=== PATIENT | female | born 1935 | race Caucasian/White ===

== ENCOUNTER 2019-09-13 08:46 | Emergency (ER) | payer MEDICARE ==
[~2019-09-13] VITALS: Ht 158.8 cm; Wt 56.8 kg
[2019-09-13 08:49] VITALS: Ht 158.8 cm; Wt 56.8 kg
[2019-09-13 09:06] LABS: BASOPHILS 0.7 % (0-2); EOSINOPHILS 2.3 % (0-7); HEMATOCRIT 38.9 % (36.0-48.0); HEMOGLOBIN 12.7 g/dL (12-16); IMMATURE GRANULOCYTES 0.2 % (0-5); LYMPHOCYTES 33.7 % (15-50); MCH 30.5 pg (26.0-34.0); MCHC 32.6 g/dL (31.0-37.0); MCV 93.3 fL (80.0-100.0); MEAN PLATELET VOLUME 9.5 fL (7.4-10.4); NEUTROPHILS 54.1 % (40-80); PLATELET COUNT 178 10x3/uL (130-400); RBC 4.17 10x6/uL (4.00-5.40); RDW 12.6 % (11.5-14.5)
[2019-09-13 09:19] LABS: APTT 27.1 SECONDS (22.8-39.4); INR 1.1 (0.85-1.17); PROTIME 14.1 SECONDS (11.6-15.0)
[2019-09-13 09:21] LABS: CALC OSMOLALITY 280 mosm/kg (275-300); CALCIUM 8.9 mg/dL (8.5-10.1); CARBON DIOXIDE 29.7 mmol/L (21.0-32.0); CHLORIDE - SERUM 105 mmol/L (98-107); CREATININE - SERUM 1.2 mg/dL (0.6-1.3); GLUCOSE 101 mg/dL (74-106); POTASSIUM - SERUM 3.7 mmol/L (3.5-5.1); SODIUM 139 mmol/L (136-145); UREA NITROGEN 21 mg/dL (7-18); eGFR NON AFRICAN AMERICAN 45 mL/min (90-120)
[2019-09-13 09:33] LABS: ALBUMIN 3.6 g/dL (3.4-5.0); ALKALINE PHOSPHATASE 74 U/L (30-120); ALT (SGPT) 19 U/L (10-68); BILIRUBIN - TOTAL 0.43 mg/dL (0.2-1.3); CKMB 1.9 U/L (0.0-3.6); CREATINE KINASE 86 UL (21-215); MAGNESIUM - SERUM 2.4 mg/dL (1.8-2.4); PROTEIN - SERUM 7.1 g/dL (6.4-8.2); TROPONIN-I < 0.017 ng/mL (0.000-0.060)
[2019-09-13] MEDS ORDERED: PROTONIX40 MG PO (10:25)
[2019-09-13] MEDS ORDERED: HYDRALAZINE HCL25 MG PO (11:05)
[2019-09-13 11:59] VITALS: BP 154/67
== END 2019-09-13 12:25 | disposition home or self-care (01) ==
LOC: D.ER 08:46
PROVIDERS: Family Medicine
DX: Z91.19 Patient's noncompliance with other medical treatment and regimen (principal); K21.9 Gastro-esophageal reflux disease without esophagitis; I10 Essential (primary) hypertension

== ENCOUNTER 2019-11-08 11:52 | Emergency (ER) | payer MEDICARE ==
[~2019-11-08] VITALS: Ht 158.8 cm; Wt 56.8 kg
[~2019-11-08 11:52] MED LIST: HYDRALAZINE HCL25 MG PO; PROTONIX40 MG PO
[2019-11-08 11:57] VITALS: BP 176/88; Ht 158.8 cm; Wt 56.8 kg
[2019-11-08 12:46] LABS: BASOPHILS 0.9 % (0-2); EOSINOPHILS 0.9 % (0-7); HEMATOCRIT 39.3 % (36.0-48.0); HEMOGLOBIN 12.9 g/dL (12-16); IMMATURE GRANULOCYTES 0.2 % (0-5); LYMPHOCYTES 32.8 % (15-50); MCH 30.3 pg (26.0-34.0); MCHC 32.8 g/dL (31.0-37.0); MCV 92.3 fL (80.0-100.0); MEAN PLATELET VOLUME 9.3 fL (7.4-10.4); MONOCYTES 7.1 % (2-11); NEUTROPHILS 58.1 % (40-80); PLATELET COUNT 180 10x3/uL (130-400); RBC 4.26 10x6/uL (4.00-5.40); RDW 12.7 % (11.5-14.5); WBC 5.8 10x3/uL (4.8-10.8)
[2019-11-08 12:58] LABS: ANION GAP 7.5 mmol/L (8-16); CREATININE - SERUM 1.3 mg/dL (0.6-1.3); POTASSIUM - SERUM 3.5 mmol/L (3.5-5.1)
[2019-11-08 13:01] LABS: ALBUMIN 3.9 g/dL (3.4-5.0); BILIRUBIN - TOTAL 0.53 mg/dL (0.2-1.3); MAGNESIUM - SERUM 2.3 mg/dL (1.8-2.4); PROTEIN - SERUM 7.3 g/dL (6.4-8.2)
[2019-11-08 13:02] LABS: UDS - AMPHET NEGATIVE QUAL (NEGATIVE); UDS - BARB NEGATIVE QUAL (NEGATIVE); UDS - BENZO NEGATIVE QUAL (NEGATIVE); UDS - COCAINE NEGATIVE QUAL (NEGATIVE); UDS - OPIATE NEGATIVE QUAL (NEGATIVE); UDS - PCP NEGATIVE QUAL (NEGATIVE); UDS - THC NEGATIVE QUAL (NEGATIVE)
[2019-11-08 13:26] LABS: BILIRUBIN NEGATIVE (NEGATIVE); KETONE NEGATIVE (NEGATIVE); NITRITE NEGATIVE (NEGATIVE); UROBILINOGEN NORMAL mg/dL (< 2)
[2019-11-08 13:28] LABS: BACTERIA FEW HPF (NONE SEEN); EPITHELIAL CELLS OCC /hpf (0-5); WHITE CELLS - URINE OCC HPF (0-4)
[2019-11-08] MEDS ORDERED: MACRODANTIN100 MG PO ×2 (14:09→19:13)
[2019-11-08] MEDS ORDERED: FLUTICASONE PRO16 GM NASAL ×2 (14:09→19:12)
== END 2019-11-08 16:53 | disposition other institution (70) ==
LOC: D.ER 11:52
PROVIDERS: Emergency Medicine
DX: N39.0 Urinary tract infection, site not specified (principal); R41.0 Disorientation, unspecified; R45.851 Suicidal ideations; I10 Essential (primary) hypertension; K21.9 Gastro-esophageal reflux disease without esophagitis

== ENCOUNTER 2019-11-08 17:19 | Inpatient (IN) | payer MEDICARE ==
[~2019-11-08 17:19] MED LIST changes: +FLUTICASONE PRO16 GM NASAL; +MACRODANTIN100 MG PO
--- NOTE | 2019-11-08 17:46 | NUR ---
PT ADMITTED TO [facility] FROM [facility] ER FOR S.I. PT REPORTED " I WANTED TO JUMP OUT THE WINDOW." PT IS FULL CODE. PT GAVE VERVAL CONSENT TO TREAT WITNESSED X 2 NURSES. CODE # 5033. PT REPORTS HER PHARMACY IS [facility] [address] VS: 172/79,101,18, 98%, 98.4. ADMIT WT 121.6.
[2019-11-08 18:18] VITALS: BP 172/79; BMI 21.9
[2019-11-08] MEDS ORDERED: FLUTICASONE PRO16 GM NASAL (19:12)
[2019-11-08] MEDS ORDERED: MACRODANTIN100 MG PO (19:13)
--- NOTE | 2019-11-08 19:37 | NUR ---
PT BELONGINGS TOOK TO ER FOR LOCK UP. WITNESS JOAO MHT PRESENT. COPY OF BELONGINGS SHEET PLACED IN PTS CHART UNDER DISCHARGE TAB. BLACK PURSE PUT IN STORAGE ROOM IN 1123 BIN.
[2019-11-08 19:56] VITALS: BP 124/77
--- NOTE | 2019-11-08 21:36 | NUR ---
RECEIVED IN HALLWAY OUTSIDE OF NURSES STATION. CALM AND COOPERATIVE WITH ADMIT ASSESSMENT. DENIES SELF HARM AT THIS TIME. ENCOURAGE TO EXPRESS NEEDS AND FEELINGS. ORIENT TO SKILLED NURSING. RESTING IN BED WITH EYES CLOSED AT THIS TIME. CONTINUE PLAN OF CARE.
[2019-11-08 22:19] LABS: BASOPHILS 0.9 % (0-2); EOSINOPHILS 2.5 % (0-7); HEMOGLOBIN 11.5 g/dL (12-16); IMMATURE GRANULOCYTES 0.2 % (0-5); LYMPHOCYTES 39.6 % (15-50); MCH 30.4 pg (26.0-34.0); MCHC 32.9 g/dL (31.0-37.0); MCV 92.6 fL (80.0-100.0); MEAN PLATELET VOLUME 9.3 fL (7.4-10.4); MONOCYTES 8.6 % (2-11); NEUTROPHILS 48.2 % (40-80); PLATELET COUNT 156 10x3/uL (130-400); RBC 3.78 10x6/uL (4.00-5.40); RDW 12.7 % (11.5-14.5); WBC 6.5 10x3/uL (4.8-10.8)
[2019-11-08 22:54] LABS: ALBUMIN 3.2 g/dL (3.4-5.0); ANION GAP 7.1 mmol/L (8-16); BILIRUBIN - TOTAL 0.32 mg/dL (0.2-1.3); CALCIUM 8.4 mg/dL (8.5-10.1); CARBON DIOXIDE 29.7 mmol/L (21.0-32.0); CHOL - HDL RATIO 2.8 ratio (2.3-4.1); CREATININE - SERUM 1.3 mg/dL (0.6-1.3); LDL-HDL RATIO 1.6 ratio (1.5-3.5); POTASSIUM - SERUM 3.8 mmol/L (3.5-5.1); PROTEIN - SERUM 6.1 g/dL (6.4-8.2); THYROID STIMULATING HORMONE 1.07 uIU/mL (0.36-3.74)
[2019-11-09 08:30] VITALS: BP 143/77
--- NOTE | 2019-11-09 10:38 | NUR ---
REC'D PT IN ROOM RESTING IN BED WITH EYES OPEN. RESPONDS TO VERBAL STIMULI. AWAKE AND ALERT X 3 AT TIMES. PT HAS POOR INSIGHT INTO HER SITUATION AT THIS TIME. REDIRECT AND REORIENT NEEDED. PT DENIES SELF HARM AT THIS TIME. PT ON CONTACT ISOLATION FOR PENDING COVID RESULTS. WILL CPOC.
[2019-11-09 11:09] VITALS: Wt 57.4 kg
[2019-11-09 20:00] VITALS: BP 133/59
--- NOTE | 2019-11-09 22:11 | NUR ---
B.) PT IS ALERT AND ORIENTED TO SELF, PLACE AND TIME. SHE IS CALM AND COOPERATIVE WITH STAFF. SHE IS ABLE TO AMBULATE ON HER OWN WITHOUT ASSIST. SHE DENIES ANY SI THIS SHIFT. I.) PROVIDED PM MEDICATIONS PRESCRIBED. REDIRECT NEEDED. R.) COMPLIANT WITH ALL MEDICATIONS. EASY TO REDIRECT. P.) WILL CONTINUE TO MONITOR.
[2019-11-10 07:15] LABS: RAPID PLASMA REAGIN Non Reactive (Non Reactive)
--- NOTE | 2019-11-10 07:44 | NUR ---
The patient is awake and alert, she is blunted in affect, she denies SI, or HI, this am, no aggression noted. She has poor insight into her situation. She enjoys socializing and she is cooperative. Provide prescribed meds. The patient is compliant with meds. Continue POC.
[2019-11-10 08:07] VITALS: BP 155/76
--- NOTE | 2019-11-10 09:31 | NUR ---
The patient is very confused, was trying to talk to her about her medication, vitamin D and she said she takes the vitamin D at home, let her know she is low and the best thing to do is get in the sun. She said "I do, I go on the patio at the [facility]." She then went onto say that the drug company wants her to take a statin and she refuses, she said "They are trying to make me and they are not answering my phone calls." She is sitting with another lady and they are conversing. She has poor insight into her situation.
--- NOTE | 2019-11-10 15:38 | HP ---
PATIENT: ZEE BECKHAM MEDICAL RECORD: [id number] ACCOUNT: [id number] LOCATION:[facility] : 34 ADMISSION DATE: 11/08/19 PCP: No PCP HISTORY AND PHYSICAL EXAMINATION IDENTIFYING DATA: The patient is 84 years old and she is admitted to the hospital on a voluntary basis. CHIEF COMPLAINT: Confusion. HISTORY OF PRESENT ILLNESS: The patient is a very interesting woman. She lives at [facility]. She has been confused and agitated and was threatening to jump out of a window. She now is minimizing saying that she really did not mean it, but she is just angry about a number of things that are not very well organized. As best I can understand that she will not take medicines because they have salt on them and she will not eat certain foods because they have salt in them and that somehow affect her white blood count. She is also insisting she has some bizarre mold or fungus inside of her head and is wanting us to do something to get rid of that. She still has very long and convoluted stories that do not make sense. 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 She says that she is depressed, but when asked about individual neurovegetative depressive symptoms, she is denying those. It is clear that she is disorganized and not making very good rational sense. PAST MEDICAL HISTORY: Significant for hypertension. PAST PSYCHIATRIC HISTORY: None by her account. FAMILY HISTORY: Significant for hypertension in her father. ALLERGIES : LISINOPRIL. SHE INSISTS THAT CAUSES HER MAGNESIUM TO BE DEPLETED. CURRENT MEDICATIONS: None. SOCIAL HISTORY: The patient tells me that she has been , but and that she has no children. 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 MENTAL STATUS EXAMINATION: The patient is awake, alert, and oriented to person and place as well as somewhat to time and situation. Her mood is flat. Her affect is constricted. Thought processes are disorganized. She has impairment of her memory, concentration, and abstraction abilities. ASSESSMENT: AXIS I: Advanced neurocognitive disorder of the Alzheimer's type. Major depressive disorder. AXIS II: Deferred. AXIS III: Hypertension. AXIS IV: Moderate. AXIS V: Global assessment of functioning is 35. PLAN: At this time, the patient is going to be treated with a combination of antipsychotic, antidepressant, and memory enhancing medications. I suspect she may not be able to return to independent living at [facility], but that HISTORY AND PHYSICAL [id number] ZEE BECKHAM determination has yet been made. TRANSINT:[id number] Voice Confirmation ID: [id number] DOCUMENT ID: [id number] SHALOM ROUSSEAU MD at 1538 CC: [id number] DICTATION DATE: 11/09/19 1603 [employer] ATTENDANT: 11/09/19 1931 ADM IN [facility] [address] [id number]
--- NOTE | 2019-11-10 19:11 | NUR ---
PT C/O OF ACID REFLUX AND THE STATINS CAUSED HER TO HAVE GERD. HER TEETH ARE ROTTING AND SHE NEEDS SOMETHING FOR THE GERD. PROTONIX 40 MG PRN. WILL CONT TO MONITOR FOR CHANGES.
[2019-11-10 20:29] VITALS: BP 136/73
--- NOTE | 2019-11-10 20:44 | NUR ---
B.) PT IS ALERT AND ORIENTED X3. SHE IS CALM AND COOPERATIVE WITH STAFF. SHE REQUESTS THAT SHE GETS A SHOWER TONITE. INFORMED HER THAT WE WOULD GET HER ONE WHEN SHE WAS ON HER WAY TO GO TO BED. SHE DENIES ANY SI THIS SHIFT. I.) PROVIDED PM MEDICATIONS PRESCRIBED. REDIRECT NEEDED. R.) COMPLIANT WITH ALL MEDICATIONS. EASY TO REDIRECT. P.) WILL CONTINUE TO MONITOR.
--- NOTE | 2019-11-10 22:00 | NUR ---
PT C/O RIGHT BUNION PAIN. IT APPEARS A LITTLE RED THIS EVENING. EDUCATED HER ON NOT WEARING THE TIGHT BOOTS FOR AT LEAST THE NEXT DAY. INFORMED HER TO WEAR THE NON SKID FOOTWEAR THAT WE PROVIDED. SHE VERBALIZED UNDERSTANDING. WILL CONTINUE TO MONITOR.
--- NOTE | 2019-11-11 07:45 | NUR ---
The patient is awake and alert, she is dressed and well put together, she is interacting with staff and peers. She is conversing with everyone, but some of her sentences are not flowing together. She ambulates, toilets, and feeds herself. She denies depression, SI, or HI. Provide prescribed meds. The patient is compliant with meds. This am she is speaking about Psalm 91. Continue POC.
[2019-11-11 09:49] VITALS: BP 190/111
--- NOTE | 2019-11-11 11:05 | NUR ---
Nutrition Follow-up: Diet: Regular PO intake: 95-100% x last 6 meals Last BM: none since admit. Wt: 121# (11/09/19) Meds reviewed, no new chem labs Recommend continue current diet. RD following.
[2019-11-11 11:35] VITALS: BP 189/70
[2019-11-11 20:27] VITALS: BP 147/66
--- NOTE | 2019-11-11 21:00 | NUR ---
B) RECEIVED SITTING IN CHAIR WATCHING TV WITH PEERS. SHE IS ALERT AND ORIENTED X 3, CALM AND COOPERATIVE WITH ASSESSMENT. SHE DENIES SI TONIGHT. I) ADMINISTERED SCHEDULED MEDICATIONS. REDIRECT NEEDED. R) MEDICATION COMPLIANT. EASY TO REDIRECT. P) CONTINUE PLAN OF CARE.
[2019-11-12 08:01] VITALS: BP 139/84
--- NOTE | 2019-11-12 10:37 | NUR ---
PT IS AWAKE AND ALERT X 3. PT IS CONFUSED REGARDING SITUATION AT THIS TIME. CALM AND COOPERATIVE WITH ASSESSMENT. PRESCRIBED MEDS PROVIDED ORDERED. MED COMPLIANT. PT DENIES DEPRESSION, SI, OR HI. WILL CPOC.
[2019-11-12 20:41] VITALS: BP 171/82
--- NOTE | 2019-11-13 03:20 | NUR ---
RECEIVED PATIENT IN DAYROOM, SHE IS FIXATED ON UATSDIN, SHE SOCIALIZES WELL WITH OTHERS, COOPERATIVE, SHE DENIES SUICIDIAL IDEATIONS, COMPLIANT WITH MEDS, SHE IS ABLE TO MAKE ALL OF HER NEEDS AND CONCERNS KNOWN, NO ADVERSE REACTION NOTED TO MEDS. WILL FOLLOW POC
[2019-11-13 08:30] VITALS: BP 163/78
--- NOTE | 2019-11-13 08:30 | NUR ---
PT SITTING AT DINING ROOM TABLE WAITING FOR BREAKFAST. BREAKFAST ARRIVED AND PT WAS VEY UPSET REGARDING FOOD SERVED. PT STATES " I HAVE ACID REFLUX AND I CAN NOT EAT THIS MESS." PT IS VERY ANGRY AT THIS TIME. THIS NURSE AND STAFF ATTEMOTED TO ASK PT WHAT SHE WOULF PREFER ANF WE WOULD CALL [facility] AND REQUEST PT'S REQUEST. PT CONTINUES TO RAMBLE, YELL, CUSS AND UNABLE TO REDIRECT. THIS NURSE OFFERED PT CINNAMON ROLL AND CUP OF COFFEE. PT ACCEPTED AT THIS TIME. PT REQUESTED TO SPEAK TO DOCTOR REGARDING DIET. DR. SORIANO WALKED IN AROUND THIS TIME. PT TALKED WITH MD REGARDING DIET. PT INFORMED TO PLEASE COMPLETE MEAL TICKET AFTER SUPPER EACH FOR THE NEXT DAYS MENU. IF ITEM NOT LIST WRITE IT IN IR HAVE STAFF WRITE IT IN, IF AVAILABLE [facility] WILL DELIVER ON TRAY. PRESCRIBED MEDS PROVIDED ORDERED. MED COMPLIANT. PT IS CONFUSED AT TIMES. PT HARD TO REDIRECT AND REORIENT AT TIMES. WILL CPOC.
[2019-11-13 21:50] VITALS: BP 145/74
--- NOTE | 2019-11-13 23:22 | NUR ---
RECEIVED IN DAYROOM. SITTING IN A CHAIR WITH PEERS AT HER SIDE. CALM AND COOPERATIVE WITH CARE AND ASSESSMENT. NO STATEMENTS OF SELF HARM VOICED THIS EVENING. ENCOURAGE TO EXPRESS NEEDS. RESTING IN BED WITH EYES CLOSED AT THIS TIME. CONTINUE PLAN OF CARE.
--- NOTE | 2019-11-14 08:36 | NUR ---
PT REC'D BREAKFAST TRAY AT DINING TABLE WITH PEERS. PT LOOKED AT TRAY AND STARTING YELLING AT STAFF AND THROWING ITEMS OFF THE TRAY. STAFF ATTEMPTED TO REDIRECT PT. PT CONTINUED TO SCREAM LOUDER AND BECOME AGGRESSIVE WITH STAFF. PT IS VERY DISRUPTIVE TO PEERS AT THIS TIME. PT IS GROUNING VERY LOUD AT THIS TIME. PT SCREAMS OUT AT STAFF " THIS IS ME PRAYING , THE HOLY SPIRIT IS VENTING HIS ANGER TOWARDS YOU PEOPLE." PT MOVED TO DAYROOM AT THIS TIME. PT STILL UNABLE TO REDIRECT AND REORIENT AT THIS TIME. PRN HALDOL 2MG IM AND ATIVAN 0.5MG IM ADMINISTERED PER PRN ORDER. WILL CPOC.
[2019-11-14 10:40] VITALS: BP 123/81
--- NOTE | 2019-11-14 10:46 | NUR ---
PT IS RESTING IN RECLINING CHAIR AT THIS TIME. PRN EFFECTIVE. FALL PRECAUTIONS IN PLACE. WILL CPOC.
--- NOTE | 2019-11-14 12:30 | PN ---
PATIENT:ZEE BECKHAM MEDICAL RECORD: [id number] LOCATION:[facility] ADMISSION DATE: 11/08/19 PROGRESS NOTE DATE OF SERVICE: 11/10/2019 SUBJECTIVE: The patient's case was discussed with staff. She has no new complaint. OBJECTIVE: The patient is calmer than yesterday. She is still expressing a number of delusional thoughts, but they are actually better. In thinking about her situation and reviewing the information I have, I am convinced that these delusions are related to a dementing illness and not some sort of underlying thinking disorder consistent with schizophrenia or something of that nature. Clearly, she is not going to be able to return to an independent living situation. It appears that she has no close family or friends. It would appear that shelter placement is going to be indicated. I am not concerned about her harming herself in any direct way. I do not have an explanation for what transpired, but it sounds as though it was an isolated event where she made some dramatic statements that are not consistent with the current presentation. I do not see evidence of a mood disorder or serious depressive illness. TRANSINT:[id number] Voice Confirmation ID: [id number] DOCUMENT ID: [id number] SHALOM ROUSSEAU MD at 1230 CC: [id number] DICTATION DATE: 11/10/19 1617 RESOURCE ROOM SPECIAL EDUCATION TEACHER: 11/10/19 2338 ADM IN [facility] [address] [place] [address]
[2019-11-14 20:03] VITALS: BP 164/72
--- NOTE | 2019-11-14 21:21 | NUR ---
B.) PT IS ALERT AND ORIENTED TO SELF. SHE IS VERY DROWSY. SHE IS ABLE TO AMBULATE ON HER OWN BUT IS VERY UNSTEADY. SHE IS CALM AND COOPERATIVE WHEN INTERACTING WITH STAFF. I.) PROVIDED PM MEDICATIONS PRESCRIBED. REDIRECT NEEDED. R.) COMPLIANT WITH ALL MEDICATIONS. EASY TO REDIRECT. P.) WILL CONTINUE TO MONITOR.
[2019-11-15 08:02] VITALS: BP 191/98
--- NOTE | 2019-11-15 11:31 | PN ---
PATIENT:ZEE BECKHAM MEDICAL RECORD: [id number] LOCATION:[facility]112 ADMISSION DATE: 11/08/19 PROGRESS NOTE DATE OF SERVICE: 11/14/2019 SUBJECTIVE: The patient's case was discussed with staff. She has no new complaint. OBJECTIVE: The patient was very agitated today. She is delusional and insisting that there is something wrong with her food. She wants her food to only be cooked 25% [address] the way whatever that means and that it should be mostly raw because it is healthier. I am not really sure I understand what she wants even though I made a reasonable effort to do so. Because we have been unable to accommodate this unusual request, she has been very angry and aggressive. She was threatening and required p.r.n. medications today. I view it as delusional. It is not a matter of wanting to be on a vegetarian diet or a low salt diet or something of that nature, what she is asking for is nonsensical and not meaningful. ASSESSMENT: 1. Dementia. 2. Major depression. PLAN: The patient is going to be taken off Trilafon and started on a more sedating antipsychotic. Specifically, she will receive Seroquel. TRANSINT:[id number] Voice Confirmation ID: [id number] DOCUMENT ID: [id number] SHALOM ROUSSEAU MD at 1131 CC: [id number] DICTATION DATE: 11/14/19 1515 PERSONNEL PSYCHOLOGIST: 11/15/19 0022 ADM IN [address] [id number] [place] [address]
--- NOTE | 2019-11-15 12:00 | NUR ---
RECEIVED IN HALLWAY OUTSIDE OF NURSES STATION. CALM AND COOPERATIVE WITH CARE AND ASSESSMENT. DENIES SUICIDAL IDEATION. NO AGITATION OR ARGUMENTATIVE BEHAVIORS TODAY. REDIRECT AND REORIENT NEEDED. EATING AT THIS TIME. CONTINUE PLAN OF CARE.
--- NOTE | 2019-11-15 12:08 | NUR ---
Nutrition Note: Received consult for diet change to "Mechanical soft, NO SALT, NO CITRUS diet." Diet updated per MD request. Patient to continue ordering foods from menu. Kitchen will continue to honor food preferences as requested by patient. RD following.
[2019-11-15 20:23] VITALS: BP 112/70
--- NOTE | 2019-11-16 04:19 | NUR ---
RECEIVED IN DAYROOM SOCIALIZING WITH PEERS. SHE IS ORIENTED TO PERSON AND PLACE. DENIES SUICIDAL IDEATION AND IS LESS ARGUMENTATIVE TONIGHT. ADMINISTERED SCHEDULED MEDICATIONS. REDIRECTED NEEDED. MEDICATION COMPLIANT. REDIRECTS EASILY. WILL CONTINUE PLAN OF CARE.
[2019-11-16 09:56] VITALS: BP 185/100
--- NOTE | 2019-11-16 12:18 | NUR ---
PT SITTING AT TABLE AT THIS TIME. PT CAN BE ARGUEMENTIVE AT TIMES. PT IS CONFUSED AND DISORIENTED TO PLACE AND SITUATION. PT CAN MAKE NEEDS KNOWN. PT IS SELF-CARE. REDIRECT AND REORIENT NEEDED. PT IS COMPLIANT WITH MEDS, VITALS AND ASSESSMENTS. WILL CONT PLAN OF CARE.
--- NOTE | 2019-11-16 13:48 | NUR ---
Nutrition Follow-up: [facility]: [facility], No Added Salt, No [place] PO intake: ~69% average x last 9 meals Last BM: 11/12/19. Wt: 123.1# (11/13/19); Admit Wt: 121.6# (11/08/19) Meds and labs reviewed Recommend continue current diet, will continue to honor food preferences. RD following.
--- NOTE | 2019-11-16 14:06 | PN ---
PATIENT:ZEE BECKHAM MEDICAL RECORD: [id number] LOCATION:[facility] ADMISSION DATE: 11/08/19 PROGRESS NOTE DATE OF SERVICE: 11/15/2019 SUBJECTIVE: The patient's case was discussed with staff. She has no new complaint. OBJECTIVE: The patient is in good behavioral control with poor insight about her situation. She is tolerating her medicines well. ASSESSMENT: 1. Dementia. 2. Major depression. PLAN: The patient will be maintained on current medicines. She clearly is unable to live in an apartment and hopefully arrangements for her living situation can be found soon. TRANSINT:[id number] Voice Confirmation ID: [id number] DOCUMENT ID: [id number] SHALOM ROUSSEAU MD at 1406 CC: [id number] DICTATION DATE: 11/15/19 1611 CREATIVE WRITING TEACHER: 11/15/19 8759 ADM IN [place] [id number] [place] [id number]
--- NOTE | 2019-11-16 16:26 | NUR ---
PT WAS VERBALLY AGITATED WITH STAFF DURING MEALS TIMES. STATING THE FOOD THAT WAS SENT SHE DID NOT WANT AND THAT WE NEEDED TO CHANGE IT. STAFF CALLED DIETARY 2X AT BOTH MEAL TIMES. PT CAN BE DEMANDING WITH STAFF DURING THESE TIMES.
--- NOTE | 2019-11-16 18:16 | NUR ---
PT CAME TO NURSE WHILE SHE WAS FILLING OUT HER MENU FOR THE NEXT DAY. PT WENT INTO A LECTURE ABOUT HOW THE STATINS, BLOOD PRESSURE MEDS AND ANTIBIOTICS. HOW THEY DEPLETE THE GUT HEALTH. SHE WENT INTO A SPEECH AND SAID THAT SHE WAS BLESSED BY GOD. UNABLE TO REDIRECT PT FROM SPEECH.
[2019-11-16 20:39] VITALS: BP 149/63
--- NOTE | 2019-11-16 21:01 | NUR ---
RECEIVED PATIENT IN DAYROOM BEING HELPFUL AND FRIENDLY WITH THE OTHER PATIENTS, SHE IS COMPLIANT WITH MEDS, SHE IS HYPERRELIGOUS. SEH HAS BEEN COOPERATVE. DENIES SUICIDIAL IDEATIONS. WILL FOLLOW POC
--- NOTE | 2019-11-17 08:12 | NUR ---
NURSE OBTAINED MANUAL BLOOD PRESSURE OF 200/90. NURSE PAGED DR. SORIANO. AWAITING CALLBACK.
[2019-11-17 08:14] VITALS: BP 200/90
--- NOTE | 2019-11-17 08:19 | NUR ---
DR. SORIANO NEW ORDERS: ADMINISTER PRESCRIBED MEDS, PROP FEET UP AND MONITOR BLOOD PRESSURE Q 3O MINS.
--- NOTE | 2019-11-17 09:00 | NUR ---
PT BLOOD PRESSURE: 210/90. PT EATING BREAKFAST AT THIS TIME. WHEN FINISHED WILL ALLOW PT TO REST AND PROP FEET UP AT THAT TIME. WILL CONT TO MONITOR.
--- NOTE | 2019-11-17 10:10 | NUR ---
BLOOD PRESSURE: 142/65.
--- NOTE | 2019-11-17 13:11 | PN ---
PATIENT:ZEE BECKHAM MEDICAL RECORD: [id number] LOCATION:[facility] ADMISSION DATE: 11/08/19 PROGRESS NOTE DATE OF SERVICE: 11/16/2019 SUBJECTIVE: The patient's case was discussed with staff. She has no new complaint. OBJECTIVE: The patient is mostly oriented. She is eating and sleeping well. She refuses to leave her apartment. She cannot safely live there. Adult protective services will be contacted. ASSESSMENT: 1. Dementia. 2. Major depression. PLAN: Current medicines and therapies have been reviewed, both will be maintained. TRANSINT:[id number] Voice Confirmation ID: [id number] DOCUMENT ID: [id number] SHALOM ROUSSEAU MD at 1311 CC: [id number] DICTATION DATE: 11/16/19 1519 SED SPECIAL EDUCATION TEACHER: 11/17/19 0032 ADM IN [id number] [place] [address]
--- NOTE | 2019-11-17 14:35 | NUR ---
PATIENT HAS BEEN ALERT BUT QUITE AGITATED THIS SHIFT, INSISTING THAT HER FOOD CONTAINS TOO MUCH SALT. REFUSED TO EAT LUNCH AND STATED THAT HER BAKED TURKEY CONTAINED SALT. UNABLE TO RE-DIRECT. COMPLIANT WITH MEDICATIONS. CONTINUE PLAN OF CARE, ENCOURAGING INCREASED PARTICIPATION AT MEALTIME. DENIES SI AT THIS TIME.
--- NOTE | 2019-11-17 19:14 | NUR ---
NURSE SPOKE TO PT SON. ESCOBAR MARIN [phone] AND RAVINDER [phone] WHICH IS THE NUMBER. PT GAVE PERMISSION FOR NURSE TO SPEAK WITH SON. PT WAS UPSET ABOUT HER FOOD HAVING SODIUM IN IT. NURSE EDUCATED SON SHE WAS ON A NO SODIUM, NO [place] DIET TO HER GERD WELL. HE STATED HUMBERTO FROM [facility] CALLED HIM TODAY AND SO DID [facility] WHO IS SAYING SHE CAN COME BACK AND LIVE THERE BUT HUMBERTO IS SAYING ADVANCED DEMENTIA. HE VERBALIZIED NOT UNDERSTANDING THE SITUATION. HE STATED HE HAS FAMILY IN HEALTHCARE BUT HAD NEVER PERSONALLY DEALT WITH DEMENTIA. COULD THE CONFUSION AND EVERYTHING HAVE TO DO WITH BEING LOCKED IN [facility] UNABLE TO LEAVE? HOW DO YOU DIAGNOSE DEMENTIA? SHE REMEMBERS THE DOCTOR CAME TO VISIT HER. SHE NEVER HAD BEHAVIORS LIKE THIS IN HER LIFE. SHE WAS ALWAYS STUBBORN. NURSE EDUCATED THAT THE DOCTORS AND NURSE OBSERVED PTS BEHAVIOR OVER THE COURSE OF DAYS. SHE DID NOT REMEMBER AN HOUR LATER THAT SHE SAW THE DOCTOR BUT SHE REMEMBERED THIS AFTERNOON. DEMENTIA HAS DIFFERENT STAGES OF ADVANCEMENT. NURSE REFFERED SON TO [facility] FOR INFORMATION ON DEMENTIA. NURSE STATED THAT ON 11/18/2019 STAFF WOULD REACH OUT FOR MORE INFORAMATION AND POSSIBLITIES FOR HIM TO PURSUE. HE VERBAILIZED SOME UNDERSTANDING. HE HAS A SISTER IN THE [facility]. HE DID VERBALIZIED UNDERSTANDING TO SOME INFORMATION.
[2019-11-17 20:13] VITALS: BP 140/53
--- NOTE | 2019-11-17 22:53 | NUR ---
B) patient is alert and oriented to self, very confused, demanding at times, I) Administered scheduled medications as ordered, shower given, R) Medication compliant, sleeping now quietly, P) Continue plan of care.
--- NOTE | 2019-11-18 07:24 | NUR ---
The patient is awake and alert she is talkative and interacting with staff and she is talking about making cheese cake and turtles for Thanksgiving. She is pleasant. She has poor insight into her situation. She has poor short term memory recall. She says "If I didn't have this reflux I would still be working." Provide prescribed meds. The patient is compliant with meds. She ambulates, toilets, and feeds herself. Continue POC.
--- NOTE | 2019-11-18 08:30 | NUR ---
Nurse spoke with isidro this a.m. passcode given per pts permission. Isidro stated she wanted to speak with someone cause she was getting different information. She was hearing that her mother in law had dementia but [facility] told them she could come back and live there. What kind of testing did she have to show she has dementia? How were you able to diagnose her? is it just observation that you do? i do not understand the process of how all this works." nurse educated well since i had spoken with her yesterday evening not much had changed. pt slept well and was waiting breakfast at this time. There is not a definitive test to test for dementia. The psychiatrist of course does the intial diagnosis. she does appear on the surface to be very well together and oriented at times. There is moments where she does not recall information and forgets she has seen the doctor. that dementia has stages. The staff does does medication management and observation to ensure the medications are working correctly and there are no side effects. We recommand 24- hour care where he meds could be administered to her and food could be managed under supervision. Thats our recommandation. She asked for the name of the attending doctors. nurse gave name of docs. Isidro requested to speak with the doctor so she could figure out the next steps. Nurse stated i would give information and request the FOREST MANAGEMENT TEACHER called you when she was available. Nurse educated she would be here through the weekend and Thursday the entire team would discuess discharge planning. Nurse gave number of local law firm per social work coordinator request to obtain guardianship if the situation allowed it. she thanked nurse and verbalizied understanding.
--- NOTE | 2019-11-18 10:38 | NUR ---
Nitin from [facility] came here to interview the patient. They spoke for about 30-40 minutes. After the interview the patient said to Nitin "Thank you for speaking to me, you are the only one who made me feel sane." The patient is in the day room trying to converse and help another patient stay calm, she is very helpful.
[2019-11-18 20:16] VITALS: BP 124/52
--- NOTE | 2019-11-19 02:58 | NUR ---
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
[2019-11-19 07:28] VITALS: BP 192/96
--- NOTE | 2019-11-19 15:49 | NUR ---
Patient rec'd up in hallway ambulatory. A/O times 1 person, some confusion with place and situation. She is calm amd cooporative but can be demanding, quick tongued, and frustrated. She visits with other residents and offers attention to them by offering for them to sit near her and talk. staff encouraged patient to participate in one to one and group activity/session today for reminiscing and TV themes of cooking and plant care. patient very interested and participated drilling foreman of session. Will continue to work thru fears/concerns to anticipated discharge.
--- NOTE | 2019-11-19 18:24 | NUR ---
The patient called her daughter in law, and the daughter in law told her that the Dr. Chrissy Cho told her that she had advanced dementia. She became very upset and she is speaking quite tangential. She began getting agitated and raising her voice. Whatever the daughter in law said the patient said "That's a lie." She also said "This place is full of mold, and the food is full of salt." The patient then got off of the phone and with a raised voice told Mer Cox RN that "I do not have Alzheimer's, I know my mind." She demanded that Mer tell her if she is on Alzheimer's medications. She said "I've been feeling clarence funny the past couple of days." She said "It's because of all of the salt that the diet is full of in here." Mer is speaking in a kind manner to the patient and the patient said she will call her man. She grabbed a piece of paper out of her shirt that has Nitin's number on it, he is from adult protective services. She said "He was angry at [facility] and here because she said I answered all of his questions." The patient continues to make statements about her her not having Alzheimer's. Now she is saying she is getting an infection in her sinuses and when her nose gets full of contamination and this is causing her to become confused and it may make her seem like she is getting Alzheimer's. She is continuing on with what she does at home to cure herself.
[2019-11-19 20:04] VITALS: BP 180/81
--- NOTE | 2019-11-19 20:15 | NUR ---
B.) PT IS ALERT AND ORIENTED TO SELF, PLACE AND SITUATION. SHE IS ANXIOUS THIS EVENING. STATING "MY DAUGHTER IN LAW WAS TOLD I HAVE ALZHEIMERS AND I MOST DEFINITELY DO NOT. ALL MY PROBLEMS CAN BE FIXED WITH MY DEBO POT." HER SPEECH AT TIMES IS TANGETIAL. I.) PROVIDED PM MEDICATIONS PRESCRIBED. REDIRECT OFTEN. ADMINISTERED PRN ATIVAN 0.5MG PO. R.) COMPLIANT WITH ALL MEDICATIONS. DIFFICULT TO REDIRECT. P.) WILL CONTINUE TO MONITOR.
--- NOTE | 2019-11-19 20:45 | NUR ---
PT IS OBSERVED LAYING IN BED WITH EYES OPEN. SHE IS STILL DEMANDING AT THIS TIME. NO SIGNS OF DISTRESS NOTED. WILL CONTINUE TO MONITOR.
--- NOTE | 2019-11-20 08:20 | NUR ---
The patient received a breakfast tray and she did not order what was on the tray she became agitated and began to yell and said "See, this proves that I am not out of my mind, I am intellgent and can not eat these foods, I'll be sick all day and night too probably." Then she started saying that "Thanks to the statins I have reflux and can't eat certain foods" then she went onto say "I have this fungus and all this mold is causing all of this." Explained to her that she is intelligent and does not need to yell, she should try to remain calm and resonable and that if she and her family disagree with the diagnosis then she can go get a second opinion." She said "If I do not yell, I do not get attended to." Explained to her that staff are working on her breakfast, but she is very upset. She apologized. breakfast and she will get it. She rants and raves a bit more and she says "I do not have Alzheimer's." Another patient giggled and said "Well, the way you're acting you sure do." The patient "Oh, shut up, you probably do not know what Alzheimer's is."
[2019-11-20 09:29] VITALS: BP 194/89
--- NOTE | 2019-11-20 15:30 | NUR ---
Patient up in hallway ambulatory today.for the most of the time, patient is calm, cooperative, and often attempts to soothe other anxious patient but is obsessed with prior use of "statin" and drugs and how they "ruined" her internal organs. she also has concerns with what she eats and the amount of "salt" it has in it. she will scan every meal tray and will become easily agitated when something is on tray that she thinks will "hurt" her. this am she did not like her breakfast and became very loud, lifting voice up in a loud tone that frightened other patients and refused to eat her tray and demanded "3" bowls of cereal. ativan po given as a prn med. Patient has slept most of the day with no other outburst. Patient did not participate in group activities/session today. will continue to assess behavior changes, offer positive feedback when appropriate, educate on disease process/meds, and encourage one to one and group activities/sessions.
--- NOTE | 2019-11-20 19:14 | NUR ---
RECEIVED IN DAYROOM. SITTING IN A CHAIR. KEEPING TO HERSELF. CALM AND COOPERATIVE WITH CARE AND ASSESSMENT. NO STATEMENTS OF SELF HARM VOICED. ENCOURAGE TO EXPRESS NEEDS. CONTINUES TO SIT CALMLY IN DAYROOM. CONTINUE PLAN OF CARE.
[2019-11-20 20:34] VITALS: BP 172/75
--- NOTE | 2019-11-21 07:30 | NUR ---
REC'D PT IN HALLWAY BY NURSES STATION. PT IS AWAKE AND ALERT X 3. PRESCRIBED MEDS PROVIDED ORDERED. MED COMPLIANT. NO BEHAVIORS NOTED AT THIS TIME. WILL CPOC.
[2019-11-21 08:09] VITALS: BP 147/83
--- NOTE | 2019-11-21 08:24 | PN ---
PATIENT:ZEE BECKHAM MEDICAL RECORD: [id number] LOCATION:[facility] ADMISSION DATE: 11/08/19 PROGRESS NOTE DATE OF SERVICE: 11/17/2019 SUBJECTIVE: The patient's case was discussed with staff. She has no new complaint. OBJECTIVE: The patient is quite agitated and angry that there is salt in her food, which there actually is not, but she is angry about this anyway. ASSESSMENT: Dementia. PLAN: The patient will be treated with a slightly higher dose of Seroquel. She will be monitored for clinical changes associated with its use. Her long-term prognosis is guarded. NTS:[id number] Voice Confirmation ID: [id number] DOCUMENT ID: [id number] SHALOM ROUSSEAU MD at 0824 CC: [id number] DICTATION DATE: 11/17/19 1440 SILL WORKER: 11/17/19 2202 ADM IN [facility] [address] [place] [address]
--- NOTE | 2019-11-21 19:31 | NUR ---
RECEIVED IN DAYROOM. SITTING IN DAYROOM. SITTING IN A CHAIR WITH PEERS AT HER SIDE. CALM AND COOPERATIVE WITH CARE AND ASSESSMENT. NO STATEMENTS OF SELF HARM VOICED THIS EVENING. ENCOURAGE TO EXPRESS NEEDS. CONTINUES TO SIT CALMLY IN DAYROOM. CONTINUE PLAN OF CARE.
[2019-11-21 22:05] VITALS: BP 157/70
--- NOTE | 2019-11-22 07:30 | NUR ---
PT IS AWAKE AND ALERT X 3. CALM AND COOPERATIVE WITH ASSESSMENT. PRESCRIBED MEDS PROVIDED ORDERED. MED COMPLIANT. NO BEHAVIORS NOTED AT THIS TIME. REDIRECT AND REORIENT NEEDED. WILL CPOC.
--- NOTE | 2019-11-22 07:55 | PN ---
PATIENT:ZEE BECKHAM MEDICAL RECORD: [id number] LOCATION:[facility] ADMISSION DATE: 11/08/19 PROGRESS NOTE DATE OF SERVICE: 11/21/2019 SUBJECTIVE: The patient's case was discussed with staff. She has no new complaint. OBJECTIVE: The patient is in better behavioral control and much less agitated than she was a few days ago. ASSESSMENT: Dementia. PLAN: The patient will be maintained on current medications. However, the dose of Lexapro will be increased to 10 mg daily. TRANSINT:[id number] Voice Confirmation ID: [id number] DOCUMENT ID: [id number] SHALOM ROUSSEAU MD at 0755 CC: [id number] DICTATION DATE: 11/21/19 155 COLLIERY CLERK: 11/21/19 2245 ADM IN [place] [address] [place] [address]
[2019-11-22 08:03] VITALS: BP 207/95
[2019-11-22 08:04] VITALS: BP 126/50
--- NOTE | 2019-11-22 19:33 | NUR ---
RECEIVED IN DAYROOM. SITTING IN A CHAIR WITH PEERS AT HER SIDE. CALM AND COOPERATIVE WITH CARE AND ASSESSMENT. NO STATEMENTS OF SELF HARM VOICED THIS EVENING. ENCOURAGE TO EXPRESS NEEDS. CONTINUES TO SIT CALMLY IN DAYROOM. CONTINUE PLAN OF CARE.
[2019-11-22 20:59] VITALS: BP 138/51
--- NOTE | 2019-11-23 08:39 | NUR ---
SON'S CONTACT # AND DAUGHTER IN LAW MAGDALENA'S # IS .
--- NOTE | 2019-11-23 09:00 | NUR ---
SHARA SPOKE WITH PT'S SON HAYDEE AND DISCUSSED RESOURCES HE MIGHT FIND IN [place] FOR PT TO MOVE CLOSER TO HIM. SHARA STATED PT IS READY TO DISCHARGE. PT WILL RETURN TO [facility]. HAYDEE AGREED TO DISCHARGE PLANS. PT STATED HE FRIEND WITH HER KEYS WOULD BE BACK IN [place] THURSDAY SO SHE CAN GET INTO HER APARTMENT. PT WILL BE DISCHARGED 11/24.
--- NOTE | 2019-11-23 09:07 | NUR ---
Nutrition Follow-up: Diet: Low Sodium PO intake: ~93% average x last 9 meals Last BM: 11/22/19. Wt: 126# (11/20/19); Admit Wt: 121.6# (11/08/19) Meds reviewed. No new labs Recommend continue current diet. RD following.
[2019-11-23 09:31] VITALS: BP 200/92
--- NOTE | 2019-11-23 13:55 | PN ---
PATIENT:ZEE BECKHAM MEDICAL RECORD: [id number] LOCATION:[facility] ADMISSION DATE: 11/08/19 PROGRESS NOTE DATE OF SERVICE: 11/22/2019 SUBJECTIVE: The patient's case was discussed with staff. She has no new complaint. OBJECTIVE: The patient is in good behavioral control. She has poor insight about her situation. ASSESSMENT: Dementia. PLAN: The patient is in need of 47-eedb-u-day supervision. There are obstacles related to finding her the least restrictive environment. Primarily the obstacles are bureaucratic and financial, but the social services is working on them. As soon as discharge plans can be finalized, she is cleared to go from a behavioral standpoint. TRANSINT:[id number] Voice Confirmation ID: [id number] DOCUMENT ID: [id number] SHALOM ROUSSEAU MD at 1355 CC: [id number] DICTATION DATE: 11/22/19 1159 THEATRE MANAGER: 11/22/19 1359 ADM IN [place] [address] [place] [address]
[2019-11-23] MEDS ORDERED: LOPRESSOR25 MG PO (15:38)
[2019-11-23] MEDS ORDERED: NAMENDA5 MG PO (15:38)
[2019-11-23] MEDS ORDERED: LEXAPRO10 MG PO (15:38)
[2019-11-23] MEDS ORDERED: SEROQUEL25 MG PO (15:39)
[2019-11-23] MEDS ORDERED: TRAZODONE HCL50 MG PO (15:39)
[2019-11-23] MEDS ORDERED: VITAMIN D PO (15:39)
[2019-11-23 20:13] VITALS: BP 145/61
--- NOTE | 2019-11-23 22:48 | NUR ---
B) Patient is alert and oriented to person, calm and cooperative this shift, I) Administered scheduled medication as ordered, assisted with needs, R) Medication compliant, friedly and social with staff and peers, P) Continue plan of care.
--- NOTE | 2019-11-24 08:25 | PN ---
PATIENT:ZEE BECKHAM MEDICAL RECORD: [id number] LOCATION:[facility] ADMISSION DATE: 11/08/19 PROGRESS NOTE DATE OF SERVICE: 11/23/2019 SUBJECTIVE: The patient's case was discussed with staff. She has no new complaint. OBJECTIVE: The patient is confused and impaired cognitively. She has been seen by adult protective services and they are refusing to take custody of her and recommend that she be returned to her home. ASSESSMENT: Dementia. PLAN: The patient is no longer suicidal. She had previously told someone she would jump out of a window. I disagree with the assessment from the individual from adult protective services, but I do not have the authority to override him. Given the circumstances, the patient is going to be discharged back to her apartment tomorrow. TRANSINT:[id number] Voice Confirmation ID: [id number] DOCUMENT ID: [id number] SHALOM ROUSSEAU MD at 0825 CC: [id number] DICTATION DATE: 11/23/19 1537 FICTION AND NONFICTION WRITER PROSE: 11/23/19 2356 ADM IN [facility] [address] [place] [address]
[2019-11-24 08:42] VITALS: BP 188/83
--- NOTE | 2019-11-24 16:53 | NUR ---
Patient up this am ambulatory in [facility]. a/o times2 to person and situation. Patient initaiated one to one and group activities/sessions and assisted all other patients to participate. she did very well today and very close to having goals met for discharge.
[2019-11-24 20:09] VITALS: BP 139/63
--- NOTE | 2019-11-25 00:24 | NUR ---
B) Patient is alert and oriented to self, calm and cooperative, friendly and social with peers and staff, helpful with other patients. I) Administered scheduled medications as ordered, monitored for safety R) Medication compliant, pleasant and quiet, P) Continue plan of care.
--- NOTE | 2019-11-25 08:38 | PN ---
PATIENT:ZEE BECKHAM MEDICAL RECORD: [id number] LOCATION:[facility] ADMISSION DATE: 11/08/19 PROGRESS NOTE DATE OF SERVICE: 11/24/2019 SUBJECTIVE: The patient's case was discussed with staff. She has no new complaint. OBJECTIVE: The patient's mood is euthymic. She is partially oriented. She has no behavioral disturbances. ASSESSMENT: 1. Dementia. 2. Major depression. PLAN: The patient will be transitioned out of the hospital tomorrow. She will be going back to her apartment at [facility]. As mentioned, this is contrary to my recommendations. Adult protective services does not feel that her condition is severe enough to take custody of her; however, I disagree. The patient does not want to go anywhere, but back to her apartment or some similar facility, which is not really practical. She is therefore going to be discharged back to her apartment and I view this as inappropriate, but I have no ability to stop this. Followup will be with her primary care physician. I would like to have home health check on her, but she does not qualify for that. I think the situation is dangerous and I strongly object. TRANSINT:[id number] Voice Confirmation ID: [id number] DOCUMENT ID: [id number] SHALOM ROUSSEAU MD at 0838 CC: [id number] DICTATION DATE: 11/24/191724 SOLE STAINER: 11/24/19 173 ADM IN [place] [id number] [place] [address]
--- NOTE | 2019-11-25 14:57 | NUR ---
financial sales advisor CONTACTED PATIENT'S [id number]-EF-NLK Catherine. eDUCATED ON DISEASE, MEDICATION COMPLIANCE IMPORTANCE, AND RESOURCES FOR OUTPATIENT. Catherine STATED SHE WOULD SET PATIENT UP WITH pcp IN 3-WEEK FOLLOW-UP APPOINTMENT. pATIENT REFUSED OUTPATIENT SERVICES.
--- NOTE | 2019-11-25 15:28 | NUR ---
PT DISCHARGED TO [facility]IA [employer] WITH A VOUCHER. PT BELONGINGS SENT WITH PT INCLUDING PURSE AND ITEMS FROM THE [employer]. PT WAS IN A GOOD MOOD. MEDICATIONS AT [facility]. FAMILY TOO FOLLOW-UP PCP APPT. EDUCATED PT ON TAKING MEDICATIONS ON MEDS. SHE SOMEWHAT VERBALIZIED UNDERSTANDING.
--- NOTE | 2019-11-28 14:17 | DS ---
PATIENT:ZEE BECKHAM :33 MEDICAL RECORD: [id number] DISCHARGE SUMMARY ADMISSION DATE: 11/08/19 DISCHARGE DATE: 11/25/19 DATE OF ADMISSION: 11/08/2019 DATE OF DISCHARGE: 11/25/2019 IDENTIFYING DATA: The patient is an 84-year-old female who was admitted to the hospital on a voluntary basis, who resided at [facility]. Her chief complaint was confusion. HISTORY OF PRESENT ILLNESS: She lived at [facility]. The patient has been confused and agitated and was threatening to jump out of a window. Upon admission, the patient was minimizing saying that she really did not mean it, but that she was just angry about a number of things that are not very well organized. It is best understood that she will not take medications because they have salt in them and she will not eat certain foods because they have salt in them and that somehow affect her white blood count. The patient also is insisting that she has some bizarre mold or fungus inside of her head and is wanting us to do something to get rid of that. She still has very long and convoluted stories that do not make sense. 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 She says that she is depressed and when asked about individual neurovegetative depressive symptoms, she is denying those. It was clear that she was disorganized and not making good rational sense. HOSPITAL COURSE: The patient was admitted to the hospital and fully evaluated from both a medical, psychological, and social standpoint. She was found to have an underlying dementia with major depression. The patient was living independently at [facility]. She has a family member, [id number] and son, who, APS was consulted, were found. The patient's delusions decreased. The patient denied any suicidal ideation. The patient's orientation and cognition did improve somewhat and she had no behavioral disturbances and was partially oriented and her mood has been euthymic. DISCHARGE DIAGNOSES: AXIS I: The patient has dementia, major depression. AXIS II: Deferred. AXIS III: Hypertension. AXIS IV: Moderate. AXIS V: Global assessment was 35. PLAN: The patient will be transitioned back to [facility] to her apartment. This is contrary to psychiatric recommendations. Adult protective services did not feel that her condition is severe enough to take custody of her; however, there was disagreement. The patient does not want to go anywhere, but back to her apartment or some similar facility, which is not really practical. She is therefore going to be discharged back to her apartment and this is viewed as inappropriate, but there is no way to stop this. Followup will be with her primary care physician. Home health is encouraged. It is felt that the situation is dangerous and was strongly disagreed upon. Case management did work with family and family stated that they were going to try to get her back to [place] to live closer to them. DISCHARGE SUMMARY REPORT [id number] ZEE BECKHAM TRANSINT:[id number] Voice Confirmation ID: [id number] DOCUMENT ID: [id number] Dictated By: JUMA BECKHAM I have interviewed/examined the above patient and agree with these documented findings. SHALOM ROUSSEAU MD at 1417 CC: [id number] DICTATION DATE: 11/27/19 1459 CLASSIFIED ADVERTISING CLERK: 11/28/19 0908 DIS IN 11/25/19 [place] [address] [place] [address]
== END 2019-11-25 15:15 | disposition home or self-care (01) | DRG 880 ==
LOC: D.PSYCH 17:19
PROVIDERS: ADMIT Psychiatry & Neurology Psychiatry; ATTEND Psychiatry & Neurology Psychiatry
DX: R45.851 Suicidal ideations (principal); N39.0 Urinary tract infection, site not specified; G30.9 Alzheimer's disease, unspecified; F02.80 Dementia in other diseases classified elsewhere, unspecified severity, without behavioral disturbance, psychotic disturbance, mood disturbance, and anxiety; F32.9 Major depressive disorder, single episode, unspecified; I10 Essential (primary) hypertension; K21.9 Gastro-esophageal reflux disease without esophagitis; E55.9 Vitamin D deficiency, unspecified; D64.9 Anemia, unspecified